=== PATIENT | male | born 1995 | race Caucasian/White ===

== ENCOUNTER 2018-10-02 11:42 | Emergency (ER) | payer BC ==
[2018-10-02 11:49] VITALS: BP 124/67; PULSE 81; RESP 18; TEMP 98.4
[2018-10-02] MEDS ORDERED: DIAZEPAM 5 MG TAB PO STA (12:12)
[2018-10-02] MEDS ORDERED: KETOROLAC 30 MG/ML 1 ML VIAL IM STA (12:12)
--- NOTE | 2018-10-02 12:37 | XR ---
EXAMINATION TYPE: XR femur LT , 4 VIEWS DATE OF EXAM ORDERED: 10/02/2018 HISTORY: Posterior thigh pain. COMPARISON: None. FINDINGS: No fracture, dislocation or other acute osseous lesion is seen. The hip and knee joints ar e well maintained. There is a small "bump" on the left femoral neck. IMPRESSION: 1. NO ACUTE OSSEOUS LESION. 2. PLEASE CORRELATE FOR FEMOROACETABULAR IMPINGEMENT SYNDROME
[2018-10-02] MEDS ORDERED: ACET/COD 300 MG/30 MG STARTER PACK 6 TAB BTL PO STA (12:51)
--- NOTE | 2018-10-02 12:52 | ED ---
Lower Extremity Injury HPI - General Chief Complaint: Extremity Injury, Lower Stated Complaint: left leg pain Time Seen by Provider: 10/02/18 11:49 Source: patient Mode of arrival: ambulatory Limitations: no limitations - History of Present Illness Initial Comments: 23-year-old male no past medical history presenting today for chief complaint of left posterior thigh pain. Patient states he was running a softball when he felt a sensation as though somewhat shooting over the back of the thigh. States this brought him to the ground he states he has not been able to weight-bear since due to the pain. Patient denies any bumps in the posterior thigh. Denies numbness tingling or loss sensation he denies bruising. Remaining review of systems negative denies injury to the head or any other extremity upon falling. Patient denies neck or back pain. - Related Data Home Medications Medication Instructions Recorded Confirmed Tadalafil [Cialis] 5 mg PO DAILY 07/08/14 07/08/14 Previous Rx's Medication Instructions Recorded HYDROcodone/APAP 5-325MG [[place] 1 each PO Q6HR PRN #20 tab 07/08/14 5-325] Ibuprofen [Motrin] 800 mg PO Q8HR PRN #30 tab 07/08/14 Cyclobenzaprine [Flexeril] 10 mg PO HS 7 Days #7 tab 10/02/18 Allergies Allergy/AdvReac Type Severity Reaction Status Date / Time Penicillins Allergy Unknown Verified 07/08/14 00:41 Sulfa (Sulfonamide Allergy Unknown Verified 07/08/14 00:41 Antibiotics) Review of Systems ROS Statement: Those systems with pertinent positive or pertinent negative responses have been documented in the HPI. ROS Other: All systems not noted in ROS Statement are negative. 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 History of Any Multi-Drug Resistant Organisms: None Reported Past Surgical History: Adenoidectomy, Tonsillectomy Past Psychological History: No Psychological Hx Reported Smoking Status: Light tobacco smoker Past Alcohol Use History: None Reported Past Drug Use History: None Reported General Exam - General Exam Comments Initial Comments: General: The patient is awake and alert, in no distress, and does not appear acutely ill. Eye: Pupils are equal, round and reactive to light, extra-ocular movements are intact. No nystagmus. There is normal conjunctiva bilaterally. No signs of icterus. Ears, nose, mouth and throat: There are moist mucous membranes and no oral lesions. Neck: The neck is supple, there is no tenderness or JVD. Cardiovascular: There is a regular rate and rhythm. No murmur, rub or gallop is appreciated. Respiratory: Lungs are clear to auscultation, respirations are non-labored, breath sounds are equal. No wheezes, stridor, rales, or rhonchi. Gastrointestinal: Soft, non-distended, non-tender abdomen without masses or organomegaly noted. There is no rebound or guarding present. No CVA tenderness. Bowel sounds are unremarkable. Musculoskeletal: Upon inspection of the hips and thighs bilaterally there is no ecchymosis or masses of the posterior thighs. Patient is diffusely tender along the hamstrings of the left posterior thigh. There is no pain with palpation of the left calf knee or ankle. She is able to range at the plus bilaterally refuses to fully range at the knee and hip of the left lower extremity secondary to pain. Normal ROM, no tenderness. Strength 5/5. Sensation intact of the LE equal in comparison b/l. DP pulses equal bilaterally 2+. Neurological: A&O x 3. CN II-XII intact, There are no obvious motor or sensory deficits. Coordination appears grossly intact. Speech is normal. Skin: Skin is warm and dry and no rashes or lesions are noted. Psychiatric: Cooperative, appropriate mood & affect, normal judgment. Limitations: no limitations Course Vital Signs 10/02/18 11:45 Temperature 98.4 F Pulse Rate 81 Respiratory 18 Rate Blood Pressure 124/67 O2 Sat by Pulse 96 Oximetry Medical Decision Making - Medical Decision Making 23-year-old male presenting for left posterior thigh pain. Patient had sudden onset of pain while running. Concerning for ligamentous injury or tendon. Patient states is in the hamstring region. Patient has no palpable muscle belly or mass in the posterior thigh or bruising. Patient is neurovascularly intact. Patient's findings consistent quadriceps injury. Imaging studies revealing no acute osseous process. This time I feel patient is still for discharge with nonweightbearing instructions and follow-up with orthopedic surgery. Patient states he has a scheduled appointment set for Thursday. Patient was given Valium for muscle spasms. He will be discharged with a muscle relaxant and a starter pack of Tylenol No. 3. Patient is aware of use of medication and risks involved. She is agreeable to plan as well as discharge. Patient denies questions at this time. Discharge appear well after discussing case attended provider Dr. Smith Disposition Clinical Impression: Hamstring muscle strain Disposition: HOME SELF-CARE Condition: Good Instructions (If sedation given, give patient instructions): Hamstring Injury (ED) Additional Instructions: Please use medication as discussed. Please follow-up with orthopedic surgery within next week, u continue to use crutches for ambulation. Please return to emergency room if the symptoms increase or worsen or for any other concerns. Prescriptions: Cyclobenzaprine [Flexeril] 10 mg PO HS 7 Days #7 tab Is patient prescribed a controlled substance at d/c from ED?: No Referrals: None,Stated [Primary Care Provider] - 1-2 days Titi Duff MD [STAFF PHYSICIAN] - 1-2 days Time of Disposition: 12:51
== END 2018-10-02 13:06 | disposition home or self-care (01) ==
LOC: EC 11:42
DX: S76.912A Strain of unspecified muscles, fascia and tendons at thigh level, left thigh, initial encounter (principal); F17.200 Nicotine dependence, unspecified, uncomplicated; Z79.899 Other long term (current) drug therapy; Z88.0 Allergy status to penicillin; Z88.2 Allergy status to sulfonamides; X58.XXXA Exposure to other specified factors, initial encounter; Y93.64 Activity, baseball
CPT/HCPCS: 73552; 99283; 96372; J1885